=== PATIENT | female | born 1980 | race Caucasian/White ===

== ENCOUNTER 2017-06-26 11:30 | Emergency (ER) | payer MEDICAID ==
[~2017-06-26] VITALS: Ht 160 cm; Wt 80.0 kg
[2017-06-26 12:33] LABS: HEMATOCRIT 44.9 % (34.6-47.8)
[2017-06-26 12:45] LABS: ASPARTATE AMINO TRANSFERASE 170 U/L (15-37); BLOOD UREA NITROGEN 10 mg/dL (7-18)
[2017-06-26] MEDS ORDERED: CEFDINIR 300 MG CAPSULE PO ONE (15:30)
[2017-06-26] MEDS ORDERED: KETOROLAC 30 MG/1 ML IM ONE (15:30)
[2017-06-26] MEDS ORDERED: PHENAZOPYRIDINE 200 MG TABLET PO ONE (15:30)
[2017-06-26] MEDS ORDERED: PHENAZOPYRIDINE 200 MG TABLET ONE (15:33)
[2017-06-26 15:39] VITALS: BP 129/95
[2017-06-26] MEDS ORDERED: KETOROLAC 30 MG/1 ML ONE (15:50)
== END 2017-06-26 16:20 | disposition home or self-care (01) ==
LOC: ED 16:10
DX: N39.0 Urinary tract infection, site not specified (principal); R31.9 Hematuria, unspecified; Z87.440 Personal history of urinary (tract) infections; Z87.442 Personal history of urinary calculi
CPT/HCPCS: 36415; 80053; 81001; 83690; 84703; 85025; 87077; 87086; 87147; 87186; 99284

== ENCOUNTER 2018-07-02 11:19 | Emergency (ER) | payer MEDICAID ==
[~2018-07-02] VITALS: Ht 160 cm; Wt 69.0 kg
[2018-07-02 11:21] VITALS: BP 138/86
[2018-07-02] MEDS ORDERED: HYDROcodone/APAP 5/325 TABLET ONE (11:37)
[2018-07-02] MEDS ORDERED: HYDROcodone/APAP 5/325 TABLET PO ONE (12:00)
== END 2018-07-02 11:58 | disposition home or self-care (01) ==
LOC: ED 11:46
DX: K02.9 Dental caries, unspecified (principal); F17.200 Nicotine dependence, unspecified, uncomplicated
CPT/HCPCS: 99283